=== PATIENT | male | born 1975 | race Caucasian/White ===

== ENCOUNTER 2018-06-27 12:51 | Emergency (ER) | payer OTHER ==
[2018-06-27 13:03] VITALS: BP 125/77; PULSE 70; TEMP 98.6; BMI 26.5
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
[2018-06-28 03:16] LABS: HBsAG SCREEN Negative (Negative)
== END 2018-06-27 13:45 | disposition home or self-care (01) ==
LOC: JERFT 12:51
DX: Z77.21 Contact with and (suspected) exposure to potentially hazardous body fluids (principal); Y35.891A Legal intervention involving other specified means, law enforcement official injured, initial encounter; Y93.89 Activity, other specified; Y92.89 Other specified places as the place of occurrence of the external cause; Y99.0 Civilian activity done for income or pay
CPT/HCPCS: 36415; 86317; 86706; 86803; 87340; 87389; 99281-25

== ENCOUNTER 2018-08-06 18:08 | Emergency (ER) | payer BC, OTHER ==
[2018-08-06 18:16] VITALS: BP 143/89; PULSE 92; TEMP 98.1; BMI 27.2
--- NOTE | 2018-08-06 18:16 | PDOC ---
Rapid Medical Evaluation Chief Complaint: Injury Time Seen by Provider: 08/06/18 18:13 Medical Evaluation: Allergies Allergy/AdvReac Type Severity Reaction Status Date / Time No Known Allergies Allergy Verified 05/16/16 17:41 I have performed a brief in-person evaluation of this patient. The patient presents with a chief complaint of: s/p slip and fall with R ankle pain Pertinent physical exam findings: swelling at R lateral malleolus; no TTP I have ordered the following: R ankle/foot xray (patient refused pain meds in triage) The patient will proceed to the ED for further evaluation. 08/06/18 18:16
--- NOTE | 2018-08-06 19:23 | PDOC ---
History of Present Illness - General Chief Complaint: Injury Stated Complaint: RIGHT LEG INJURY, YPD Time Seen by Provider: 08/06/18 18:13 - History of Present Illness Initial Comments: 08/06/18 19:19 42-year-old male with a past medical history significant for hypertension presents for evaluation of right ankle pain. He describes an inversion-type injury while going down steps carrying water. He did not fall or hit his head. He does point to the lateral aspect of the right ankle as the area of his discomfort. Past History - Past Medical History Allergies/Adverse Reactions: Allergies Allergy/AdvReac Type Severity Reaction Status Date / Time No Known Allergies Allergy Verified 08/06/18 18:17 Home Medications: Ambulatory Orders Amlodipine Besylate [Norvasc -] 5 mg PO DAILY 10/01/14 COPD: No HTN: Yes (CONTROLLED WITH MEDS.) - Surgical History Abdominal Surgery: No - Immunization History Td Vaccination: Yes TDAP Vaccination: Yes Immunization Up to Date: Yes - Suicide/Smoking/Psychosocial Hx Smoking Status: No Smoking History: Never smoked Years of Tobacco Use: 0 Number of Cigarettes Smoked Daily: 0 Cigars Per Day: 0 Information on smoking cessation initiated: No Hx Alcohol Use: No Drug/Substance Use Hx: No Substance Use Type: Alcohol Review of Systems - Review of Systems Musculoskeletal: Yes: Joint Pain *Physical Exam - Vital Signs Last Vital Signs Temp Pulse Resp BP Pulse Ox 98.1 F 92 H 19 143/89 100 08/06/18 18:14 08/06/18 18:14 08/06/18 18:14 08/06/18 18:14 08/06/18 18:14 - Physical Exam Comments: 08/06/18 19:20 Right ankle skin color and temperature are normal. There is a moderate amount of swelling at the lateral aspect of the right ankle. There is no tenderness about the knee proximal fibula or along its distal coarse. No tenderness about the medial malleolus base of the fifth metatarsal or navicular. Mild tenderness about the lateral malleolus and ATFL. Decreased range of motion no gross sensorimotor deficits is neurovascularly intact. Moderate Sedation - Procedure Monitoring Vital Signs: Procedure Monitoring Vital Signs Temperature 98.1 F 08/06/18 18:14 Pulse Rate 92 H 08/06/18 18:14 Respiratory Rate 19 08/06/18 18:14 Blood Pressure 143/89 08/06/18 18:14 O2 Sat by Pulse Oximetry (%) 100 08/06/18 18:14 Medical Decision Making - Medical Decision Making 08/06/18 19:21 No acute fracture trauma or destructive process on radiograph today. Weight- bear as tolerated with Aircast and crutches follow-up with orthopedic discussed the use of Tylenol and Motrin for pain and swelling. *DC/Admit/Observation/Transfer Diagnosis at time of Disposition: Right ankle sprain - Discharge Dispostion Disposition: HOME Condition at time of disposition: Stable Decision to Admit order: No - Referrals Referrals: Fernando Martinez MD [Primary Care Provider] - Aden Hernandez DO [Staff Physician] - - Patient Instructions Printed Discharge Instructions: Ankle Sprain, DI for Ankle Sprain Additional Instructions: He may weight-bear as tolerated with the use of the Aircast and crutches. Turn to the emergency room for worsening symptoms. Follow-up with orthopedic surgery in 1-2 days for further evaluation and treatment options. Tylenol Motrin as directed for pain and swelling. - Post Discharge Activity Forms/Work/School Notes: Back to Work
== END 2018-08-06 19:27 | disposition home or self-care (01) ==
LOC: JERFT 18:08
PROC: 2W3QX1Z Immobilization of Right Lower Leg using Splint (ICD-10-PCS; principal; 2018-08-06)
DX: S93.401A Sprain of unspecified ligament of right ankle, initial encounter (principal); W10.9XXA Fall (on) (from) unspecified stairs and steps, initial encounter; Y93.89 Activity, other specified; Y92.89 Other specified places as the place of occurrence of the external cause
CPT/HCPCS: 73610-TC-RT-FY; 73630-TC-RT-FY; 99281-25

== ENCOUNTER 2019-02-07 14:25 | Emergency (ER) | payer BC, OTHER ==
[2019-02-07 14:38] VITALS: BP 130/69; PULSE 70; TEMP 97.7; BMI 25.8
[2019-02-07] MEDS ORDERED: IBUPROFEN 600 MG TABLET (FP) PO ONE ×2 (14:49→14:51)
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
== END 2019-02-07 15:45 | disposition home or self-care (01) ==
LOC: JERFT 14:25
DX: S46.811A Strain of other muscles, fascia and tendons at shoulder and upper arm level, right arm, initial encounter (principal); Y35.891A Legal intervention involving other specified means, law enforcement official injured, initial encounter; Y93.89 Activity, other specified; Y92.89 Other specified places as the place of occurrence of the external cause; Y99.0 Civilian activity done for income or pay; I10 Essential (primary) hypertension
CPT/HCPCS: 73030-TC-RT-FY; 99281-25

== ENCOUNTER 2019-05-05 16:30 | Emergency (ER) | payer OTHER ==
[2019-05-05 16:35] VITALS: BMI 25.8
--- NOTE | 2019-05-05 16:35 | PDOC ---
Rapid Medical Evaluation Time Seen by Provider: 05/05/19 16:34 Medical Evaluation: Allergies Allergy/AdvReac Type Severity Reaction Status Date / Time No Known Allergies Allergy Verified 02/07/19 14:38 05/05/19 16:34 I have performed a brief in-person evaluation of this patient. The patient presents with a chief complaint of: slip and fall, pain to R thigh over site of varicose vein removal Pertinent physical exam findings: well appearing, ambulatory I have ordered the following: x-ray knee and femur The patient will proceed to the ED for further evaluation. Discharge Disposition - Diagnosis Fall - Referrals - Patient Instructions - Post Discharge Activity
[2019-05-05] MEDS ORDERED: IBUPROFEN 400 MG TABLET (FP) PO ONE ×2 (16:51→17:08)
--- NOTE | 2019-05-05 17:09 | PDOC ---
History of Present Illness - General Chief Complaint: Injury Stated Complaint: YPD R/LEG INJURY Time Seen by Provider: 05/05/19 16:34 History Source: Patient Exam Limitations: Clinical Condition - History of Present Illness Initial Comments: 05/05/19 17:05 Patient with history of varicose vein repair present with complaint of pain to medial aspect of right knee and thigh status post slip on ice over an hour ago stretching right knee. Patient denies fall from slipping. Patient reported increased pain to medial aspect of right knee with ambulation. Denies any numbness and tingling sensation. Denies any other symptoms. Patient did not take anything for pain Occurred: reports: just prior to arrival Past History - Past Medical History Allergies/Adverse Reactions: Allergies Allergy/AdvReac Type Severity Reaction Status Date / Time No Known Allergies Allergy Verified 05/05/19 16:35 Home Medications: Ambulatory Orders Amlodipine Besylate [Norvasc -] 5 mg PO DAILY 10/01/14 Ibuprofen 600 mg PO Q8H PRN #20 tablet 05/05/19 COPD: No HTN: Yes (CONTROLLED WITH MEDS.) - Surgical History Abdominal Surgery: No - Immunization History Td Vaccination: Yes TDAP Vaccination: Yes Immunization Up to Date: Yes - Psycho Social/Smoking Cessation Hx Smoking Status: No Smoking History: Never smoked Years of Tobacco Use: 0 Number of Cigarettes Smoked Daily: 0 Cigars Per Day: 0 Hx Alcohol Use: No Drug/Substance Use Hx: No Substance Use Type: Alcohol Trauma Specific PMHX - Complaint Specific PMHX Arthritis: No Review of Systems - Review of Systems Able to Perform ROS?: Yes Is the patient limited [place] proficient: No Constitutional: No: Malaise, Weakness HEENTM: No: Symptoms Reported, Eye Pain, Blurred Vision, Recent change in vision , Double Vision Respiratory: No: Symptoms reported Cardiac (ROS): No: Symptoms Reported ABD/GI: No: Symptoms Reported Musculoskeletal: Yes: Symptoms Reported, See HPI, Joint Pain (right knee pain), Muscle Pain (medial aspect of right knee). No: Joint Swelling, Joint Stiffness Integumentary: No: Symptoms Reported, Bruising Neurological: No: Symptoms reported, Numbness, Paresthesia, Tingling All Other Systems: Reviewed and Negative *Physical Exam - Vital Signs Last Vital Signs Temp Pulse Resp BP Pulse Ox 98 F 70 18 127/88 99 05/05/19 16:33 05/05/19 16:33 05/05/19 16:33 05/05/19 16:33 05/05/19 16:33 - Physical Exam General Appearance: Yes: Nourished, Appropriately Dressed. No: Apparent Distress HEENT: positive: Normal ENT Inspection Neck: positive: Supple Respiratory/Chest: negative: Respiratory Distress, Accessory Muscle Use Musculoskeletal: positive: Normal Inspection, Other (mild tenderness to medial collateral ligament of right knee and distal right medial thigh area) Extremity: positive: Normal Inspection, Normal Range of Motion Integumentary: positive: Normal Color. negative: Erythema, Swelling, Ecchymosis , Bruising Neurologic: positive: Fully Oriented, Alert, Normal Mood/Affect, Normal Response , Motor Strength 5/5 Medical Decision Making - Medical Decision Making 05/05/19 17:06 Patient with history of varicose vein repair present with complaint of pain to medial aspect of right knee and thigh status post slip on ice over an hour ago stretching right knee. Patient denies fall from slipping. Patient reported increased pain to medial aspect of right knee with ambulation. Denies any numbness and tingling sensation. Denies any other symptoms. Patient did not take anything for pain Exam significant for mild tenderness to medial collateral ligament of right knee and medial aspect of distal anterior thigh area of right leg. No visible bruising or ecchymosis. Patient symptoms likely knee strain. X-ray of right knee and femur ordered from triage. Motrin 800 mg p.o. ordered for pain 05/05/19 17:41 X-ray of right knee and femur shows no acute fracture or pathology. Patient symptoms likely knee sprain. Right knee wrapped with Tyson bandage. Patient stable for discharge on Motrin as needed for pain with advised to do hot compress and follow-up with orthopedics as needed Discharge - Discharge Information Problems reviewed: Yes Clinical Impression/Diagnosis: Right knee sprain Qualifiers: Encounter type: initial encounter Involved ligament of knee: medial collateral ligament Qualified Code(s): S83.411A - Sprain of medial collateral ligament of right knee, initial encounter Condition: Stable Disposition: HOME - Admission No - Additional Discharge Information Prescriptions: Ibuprofen 600 mg PO Q8H PRN #20 tablet PRN Reason: pain - Follow up/Referral Referrals: Aden Hernandez DO [Staff Physician] - - Patient Discharge Instructions Patient Printed Discharge Instructions: DI for Knee Sprain Additional Instructions: X-ray of right knee shows no acute fracture or dislocation. No evidence of venous bleeding or vein eruption on exam. Take prescribed Motrin as needed for pain and apply hot compress to the knee as needed for pain. Follow-up orthopedics as needed - Post Discharge Activity Work/Back to School Note: Back to Work
[2019-05-05 18:07] VITALS: BP 114/68; PULSE 81; TEMP 98.2
== END 2019-05-05 17:54 | disposition home or self-care (01) ==
LOC: JERFT 16:30
CPT/HCPCS: 73552-TC-RT-FY; 73562-TC-RT-FY; 99282-25

== ENCOUNTER 2019-06-24 19:04 | Emergency (ER) | payer OTHER ==
[2019-06-24 19:25] VITALS: BP 136/72; PULSE 69; TEMP 98.5; BMI 26.5
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
== END 2019-06-24 20:02 | disposition home or self-care (01) ==
LOC: JERFT 19:04
DX: S46.812A Strain of other muscles, fascia and tendons at shoulder and upper arm level, left arm, initial encounter (principal); V49.49XA Driver injured in collision with other motor vehicles in traffic accident, initial encounter; Y92.414 Local residential or business street as the place of occurrence of the external cause; Y93.89 Activity, other specified; I10 Essential (primary) hypertension
CPT/HCPCS: 99281-25

== ENCOUNTER 2019-07-31 18:20 | Emergency (ER) | payer OTHER ==
[2019-07-31 18:42] VITALS: BP 113/78; PULSE 75; TEMP 97.9; BMI 25.8
[2019-07-31] MEDS ORDERED: IBUPROFEN 600 MG TABLET (FP) PO ONE ×2 (18:50→18:51)
--- NOTE | 2019-07-31 18:55 | PDOC ---
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 Patient reported mild pain over swelling area of right leg. Denies difficulty with ambulation, restricted knee movement. Patient did not take anything for pain. Denies any other symptoms Occurred: reports: just prior to arrival Past History - Past Medical History Allergies/Adverse Reactions: Allergies Allergy/AdvReac Type Severity Reaction Status Date / Time No Known Allergies Allergy Verified 07/31/19 18:29 Home Medications: Ambulatory Orders Amlodipine Besylate [Norvasc -] 5 mg PO DAILY 10/01/14 Ibuprofen 600 mg PO Q8H PRN #20 tablet 07/31/19 COPD: No HTN: Yes (CONTROLLED WITH MEDS.) - Surgical History Abdominal Surgery: No - Immunization History Td Vaccination: Yes TDAP Vaccination: Yes Immunization Up to Date: Yes - Psycho Social/Smoking Cessation Hx Smoking Status: No Smoking History: Never smoked Years of Tobacco Use: 0 Have you smoked in the past 12 months: No Number of Cigarettes Smoked Daily: 0 Cigars Per Day: 0 Hx Alcohol Use: No Drug/Substance Use Hx: No Substance Use Type: Alcohol Trauma Specific PMHX - Complaint Specific PMHX Arthritis: No Review of Systems - Review of Systems Able to Perform ROS?: Yes Is the patient limited Persian proficient: No Constitutional: No: Malaise, Weakness HEENTM: No: Symptoms Reported, See HPI, Eye Pain, Blurred Vision, Tearing, Recent change in vision, Double Vision, Cataracts, Ear Pain, Ocular Prothesis, Ear Discharge, Nose Pain, Nose Congestion, Tinnitus, Nose Bleeding, Hearing Loss, Throat Pain, Throat Swelling, Mouth Pain, Dental Problems, Difficulty Swallowing, Mouth Swelling, Other Respiratory: No: Symptoms reported, See HPI, Cough, Orthopnea, Shortness of Breath, SOB with Exertion, SOB at Rest, Stridor, Wheezing, Productive cough, Hemoptysis, Other Cardiac (ROS): No: Symptoms Reported ABD/GI: No: Symptoms Reported Musculoskeletal: Yes: Symptoms Reported, See HPI, Joint Pain (right ankle aching pain), Muscle Pain (hinton of right leg pain). No: Joint Stiffness Integumentary: Yes: Symptoms Reported, See HPI, Bruising (to skin of anterior right lower leg and knee), Other (mild swelling to hinton of right leg) Neurological: No: Symptoms reported, Numbness, Weakness, Dizziness All Other Systems: Reviewed and Negative *Physical Exam - Vital Signs Last Vital Signs Temp Pulse Resp BP Pulse Ox 97.9 F 75 18 113/78 99 07/31/19 18:29 07/31/19 18:29 07/31/19 18:29 07/31/19 18:29 07/31/19 18:29 - Physical Exam 07/31/19 19:04 GENERAL: Well developed, well nourished. Awake and alert. No acute distress. PULMONARY: No evidence of respiratory distress. MUSCULOSKELETAL : mild tenderness over anterior patella of right knee. Mild localized 2 cm area of swelling to hinton of right leg with mild erythema over swelling. No visible deformity. Patient walking with normal gait. Negative anterior and posterior drawer test of right knee. No tenderness to right ankle SKIN: Warm and dry. Normal capillary refill. Mild localized swelling to hinton of mid lower leg. NEUROLOGICAL: Alert, awake, appropriate. No motor deficits in the lower extremities. Gait is normal without ataxia. PSYCHIATRIC: Cooperative. Good eye contact. Appropriate mood and affect. General Appearance: Yes: Nourished, Appropriately Dressed. No: Apparent Distress Medical Decision Making - Medical Decision Making 07/31/19 19:06 Patient with no significant past medical history present with complaint of pain to hinton of right lower leg and anterior knee status post hitting leg and knee on the ground while trying to arrest a suspect as [employer]. Patient reported mild pain over swelling area of right leg. Denies difficulty with ambulation, restricted knee movement. Patient did not take anything for pain. Denies any other symptoms Exam significant for 2 cm area of localized mild swelling to hinton of right lower leg on the medial portion. No visible deformity. Mild tenderness to swelling area of right lower leg and anterior patella of right knee. Negative anterior posterior drawer test. Patient symptoms likely knee and leg contusion and stable for discharge on Motrin PRN for pain with advised to do cold compress today switch to hot compress tomorrow as needed for swelling. Motrin 600 mg p.o. ordered prior to discharge. Patient stable for discharge Discharge - Discharge Information Problems reviewed: Yes Clinical Impression/Diagnosis: Contusion of right lower leg, initial encounter Right knee sprain Qualifiers: Encounter type: initial encounter Involved ligament of knee: unspecified ligament Qualified Code(s): S83.91XA - Sprain of unspecified site of right knee, initial encounter Condition: Stable Disposition: HOME - Admission No - Additional Discharge Information Prescriptions: Ibuprofen 600 mg PO Q8H PRN #20 tablet PRN Reason: pain - Follow up/Referral Referrals: Fernando Martinez MD [Primary Care Provider] - - Patient Discharge Instructions Patient Printed Discharge Instructions: DI for Knee Sprain Additional Instructions: Your knee and leg pain is likely from knee and leg contusion. Apply cold compress today switch to hot compress tomorrow as needed for pain. Take prescribed Motrin as needed for pain. Rest and no strenuous activity for the next 24 hours. Follow-up with primary care as needed - Post Discharge Activity Work/Back to School Note: Back to Work
== END 2019-07-31 18:57 | disposition home or self-care (01) ==
LOC: JER 18:20
DX: S83.8X1A Sprain of other specified parts of right knee, initial encounter (principal); S80.11XA Contusion of right lower leg, initial encounter; Y35.811A Legal intervention involving manhandling, law enforcement official injured, initial encounter; Y93.89 Activity, other specified; Y92.89 Other specified places as the place of occurrence of the external cause; Y99.0 Civilian activity done for income or pay; I10 Essential (primary) hypertension
CPT/HCPCS: 99283-25

== ENCOUNTER 2020-05-08 10:03 | Emergency (ER) | payer BC, OTHER ==
[2020-05-08 10:26] VITALS: BP 126/85; PULSE 93; TEMP 98.1; BMI 25.8
== END 2020-05-08 11:45 | disposition home or self-care (01) ==
LOC: JER 10:03
DX: R50.9 Fever, unspecified (principal); R19.7 Diarrhea, unspecified; Z03.818 Encounter for observation for suspected exposure to other biological agents ruled out
CPT/HCPCS: 99283-25; C9803; U0003

== ENCOUNTER 2022-08-24 14:32 | Emergency (ER) | payer OTHER ==
[2022-08-24 15:00] VITALS: BP 140/98; PULSE 81; RESP 16; TEMP 98.9; BMI 25.1
[2022-08-24] MEDS ORDERED: KETOROLAC TROMETHAMINE 30 MG/1 ML VIAL IM ONE (15:01)
[2022-08-24] MEDS ORDERED: KETOROLAC TROMETHAMINE 30 MG/1 ML VIAL ONE (15:17)
== END 2022-08-24 16:40 | disposition home or self-care (01) ==
LOC: FER 14:32
PROC: 3E023GC Introduction of Other Therapeutic Substance into Muscle, Percutaneous Approach (ICD-10-PCS; principal; 2022-08-24)
DX: S76.011A Strain of muscle, fascia and tendon of right hip, initial encounter (principal); Y99.8 Other external cause status
CPT/HCPCS: 72170-TC-FY; 73502-TC-RT-FY; 99284-25